=== PATIENT | female | born 1940 | race Native Hawaiian/Other Pacific Islander ===

== ENCOUNTER 2016-10-24 14:07 | Outpatient (CLI) | payer OTHER ==
[2016-10-24 14:47] LABS: POTASSIUM 5.5 mmol/L (3.6-5.2)
== END 2016-10-24 15:10 | disposition home or self-care (01) ==
LOC: LAB 14:07
PROVIDERS: Internal Medicine
DX: S06.5X9D Traumatic subdural hemorrhage with loss of consciousness of unspecified duration, subsequent encounter (principal); R18.8 Other ascites; M62.81 Muscle weakness (generalized)
CPT/HCPCS: 80048; 83735

== ENCOUNTER 2017-02-23 15:45 | Outpatient (CLI) | payer OTHER ==
[2017-02-23 16:09] LABS: POTASSIUM 3.6 mmol/L (3.6-5.2)
== END 2017-02-23 16:45 | disposition home or self-care (01) ==
LOC: LAB 15:45
PROVIDERS: Internal Medicine
DX: E87.6 Hypokalemia (principal)
CPT/HCPCS: 80048; 83735

== ENCOUNTER 2017-05-30 15:27 | Outpatient (CLI) | payer OTHER ==
[2017-05-30 16:08] LABS: POTASSIUM 2.8 mmol/L (3.6-5.2)
== END 2017-05-30 20:09 | disposition home or self-care (01) ==
LOC: LAB 15:27
PROVIDERS: Internal Medicine
DX: R18.8 Other ascites (principal); I27.21 Secondary pulmonary arterial hypertension
CPT/HCPCS: 80048

== ENCOUNTER 2017-06-13 10:44 | Outpatient (CLI) | payer OTHER ==
[2017-06-13 11:52] LABS: POTASSIUM 4.3 mmol/L (3.6-5.2)
== END 2017-06-13 19:48 | disposition home or self-care (01) ==
LOC: LAB 10:44
PROVIDERS: Internal Medicine
DX: I10 Essential (primary) hypertension (principal)
CPT/HCPCS: 80048

== ENCOUNTER 2017-06-27 15:03 | Outpatient (CLI) | payer OTHER | END 2017-06-27 18:20 | disposition home or self-care (01) | LOC: LAB 15:03 | PROVIDERS: Internal Medicine | DX: K76.6 Portal hypertension (principal); I10 Essential (primary) hypertension | CPT/HCPCS: 80048 ==

== ENCOUNTER 2017-07-11 15:47 | Outpatient (CLI) | payer OTHER | END 2017-07-11 18:00 | LOC: LAB 15:47 | PROVIDERS: Internal Medicine | DX: I10 Essential (primary) hypertension (principal) | CPT/HCPCS: 80048 ==